=== PATIENT | male | born 1985 | race Caucasian/White ===

== ENCOUNTER 2024-06-15 07:30 | Outpatient (AMB) | payer OTHER, SELFPAY ==
--- NOTE | 2024-06-15 07:36 | A.OFFPC_ITS ---
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: No Accompanied by: Self / Same As Patient Allergies No Known Allergies Allergy (Verified 06/15/24 07:46) Medication List - Last Reconciled 06/15/24 by Sara Briggs MD methadone 70 mg PO DAILY Tobacco use date assessed: 06/15/24 Dental Screening Dental Screen Date: 06/15/24 Did you have a dental visit in the last 12 months?: No Did you have a dental problem in the last 6 months where you did not have access to dental care?: No Was dental information given to patient?: Patient has dentist HPI HPI Comments History of Present Illness Details This is a 38-year-old male comes [facility] care. 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 Has a right leg open wound for about 2 years after being bit by a pitbull dog while walking his dog. Has been going to [facility] wound clinic once a week. Needs a skin graft and plastic surgery referral to [facility]. The wound currently has yellowish secretions. It is about 5 x 3 in. He is a smoker and is going to start nicotine gum to quit. Has quitting date already. [facility] Surgical History No pertinent past surgical history Family History Father Mental health disorder Mother No problems noted. Maternal Grandfather Stroke Social History Housing: House Alcohol intake: never Patient Tobacco Use Status: Current everyday Tobacco user Tobacco use type: Cigarette Cigarettes Per Day: 10 e-Cigarette/Vaping Use: Never Used Second Hand Smoke Exposure: No service: No Current occupational status: unemployed Cognitive needs: No Hearing needs: No Vision needs: No Questionnaire PHQ-9 Over the last 2 weeks, how often have you been bothered by any of the following problems? 1. Little interest or pleasure in doing things: not at all 2. Feeling down, depressed, or hopeless: not at all 3. Trouble falling or staying asleep, or sleeping too much: not at all 4. Feeling tired or having little energy: not at all 5. Poor appetite or overeating: not at all 6. Feeling bad about yourself - or that you are a failure or have let yourself or your family down: not at all 7. Trouble concentrating on things, such as reading the newspaper or watching television: not at all 8. Moving or speaking so slowly that other people could have noticed. Or the opposite - being so fidgety or restless that you have been moving around a lot more than usual: not at all 9. Thoughts that you would be better off or of hurting yourself in some way: not at all Total score: 0 Depression Screening Interpretation: Negative Depression Screening Done: Yes 48821 - PHQ-9 Billing: Yes Source: Developed by Drs. Aryan Guallpa, Teresa Charles, Antwan Baird and colleagues, with an educational raghu from [employer]. Thrive Questionnaire Date Thrive assessed: 06/12/24 I am a: Patient What is your living situation today?: I have a steady place to live Within the past 12 months, did the food you bought not last and you didn't have the money to get more?: Never true Within the past 12 months, did you worry whether your food would run out before you got money to buy more?: Never true Do you have trouble paying for medicines?: No Do you have trouble getting transportation to medical appointments?: No Do you have trouble paying your heating and electricity bill?: No Do you have trouble taking care of your child, family member or friend?: No Do you have trouble with day-to-day activities such as bathing, preparing meals, shopping, managing finances, etc.?: No Are you currently unemployed and looking for a job?: Yes Are you interested in more education?: No Please select the resources that you would like help with: None Currently or been in a relationship where the following occur: No concerns reported THRIVE Score: 0 AUDIT C Alcohol Use Questionnaire (AUDIT-C) 1. How often do you have a drink containing alcohol?: Never Total Score: 0 Score Reviewed/Action Taken: No DALLIN-7 AMB Questionnaire DALLIN-7 Date DALLIN - 7 assessed: 06/15/24 Feeling nervous, anxious, or on edge: 0 = Not at all Not being able to stop or control worryin = Not at all Worrying too much about different things: 0 = Not at all Trouble relaxin = Not at all Being so restless that it is hard to sit still: 0 = Not at all Becoming easily annoyed or irritable: 0 = Not at all Feeling afraid as if something awful might happen: 0 = Not at all Total DALLIN-7 score (0-4 normal; 5-9 mild; 10-14 moderate; 15-21 severe): 0 Source: Developed by Drs. Aryan Guallpa, Teresa Charles, Antwan Baird and colleagues, with an educational raghu from [employer]. DALLIN-7 Assessment Billing DALLIN-7 Assessment Tool: DALLIN-7 Assessment 00755 Review of Systems Const All systems reviewed & are unremarkable except as noted in HPI and below Card Denies chest pain at rest, Denies chest pain with activity, Denies edema, Denies irregular heart rhythm, Denies claudication, Denies dyspnea, Denies dyspnea on exertion, Denies orthopnea, Denies paroxysmal nocturnal dyspnea and Denies slow heart rate Resp Denies cough, Denies dyspnea and Denies dyspnea on exertion GI Denies abdominal pain, Denies change in bowel habits, Denies excessive flatus, Denies nausea and Denies vomiting Denies urinary hesitancy, Denies urinary incontinence and Denies urinary urgency Musc Denies abnormal gait, Denies atrophy, Denies deformity and Denies limited range of motion Skin/Breast Denies bleeding lesions, Denies changing lesions, Denies rash and Reports wounds Neuro Denies abnormal gait, Denies behavioral changes and Denies lack of coordination Psych Denies behavioral changes Physical exam (Primary Care) BMI result Body Mass Index 30.1 Tobacco/Smoking Status: Tobacco use Status Patient Tobacco Use Status Current everyday Tobacco 06/15/24 07:43 Tobacco use type Cigarette 06/15/24 07:43 e-Cigarette/Vaping Use Never Used 06/15/24 07:43 Are you ready to quit: Yes Tobacco cessation counseling provided: Yes Items discussed: Nicotine replacement and QuitWorks Relapse Prevention: discussed the importance of a supportive environment, discussed extending NRT, discussed negative mood or depression after quitting, weight gain after smoking is common and discussed dietary, exercise and/or lifestyle changes Number of minutes spent counselin CPT code: 68830 - 4-10 Minutes Depression Screening Interpretation: Negative Thrive Assessment: Date of Thrive Assessment Date Thrive assessed 06/12/24 06/12/24 07:48 Currently or been in a relationship where the following occur: No concerns reported Resp Effort & Inspection: normal respiratory effort Auscultation: clear to auscultation bilaterally Cardio Jugular venous distension: no JVD Rate: regular rate Rhythm: regular rhythm Heart sounds: S1 normal heart sound present and S2 normal heart sound present Extrem General: Yes full ROM Right lower extremity: lower leg Details: penetrating wound (open 5 x 3 in) Assessment and Plan Assessment & Plan (1) Open wound of right lower leg: Code(s): S81.801A - Unspecified open wound, right lower leg, initial encounter Qualifiers: Encounter type: initial encounter Qualified Code(s): S81.801A - Unspecified open wound, right lower leg, initial encounter Plan: Referred to [facility] for skin graft. Orders: Referrals Plastic Surgery Referral S81.801A - Unspecified open wound, right lower leg, initial encounter Coding Level of Care Code New Pt Level 3 (48553) Complex EM visit Add On G2211 Diagnoses Open wound of right lower leg, initial encounter S81.801A Encounter type: initial encounter Additional Codes DALLIN-7 Assessment Billing - DALLIN-7 Assessment Tool: DALLIN-7 Assessment 65019 ([id number]) Vital Signs *Quality* - CPT code: 55382 - 4-10 Minutes ([id number]) Time Spent (min) 21
[2024-06-15 07:37] VITALS: BP 112/80; BMI 30.1
== END 2024-06-15 08:00 | disposition home or self-care (01) ==
PROVIDERS: PCP Internal Medicine; Visit Provider Internal Medicine
DX: S81.801A Unspecified open wound, right lower leg, initial encounter (principal); F17.210 Nicotine dependence, cigarettes, uncomplicated
CPT/HCPCS: 99203; 99406; G2211

== ENCOUNTER 2025-01-04 13:42 | Outpatient (AMB) | payer OTHER, SELFPAY ==
--- NOTE | 2025-01-04 13:50 | MHC.PC.OV ---
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 by: Self / Same As Patient Allergies No Known Allergies Allergy (Verified 01/04/25 14:00) Medication List - Last Reconciled 01/04/25 by Sara Briggs MD ibuprofen mg PO methadone 70 mg PO DAILY Tobacco use date assessed: 01/04/25 Dental Screening Dental Screen Date: 01/04/25 Did you have a dental visit in the last 12 months?: No Did you have a dental problem in the last 6 months where you did not have access to dental care?: No Was dental information given to patient?: Yes HPI HPI Comments History of Present Illness Details The patient is a 39-year-old male presenting with the need for a physical examination. He recently underwent a skin graft two weeks prior and continues to be monitored for healing progress at a wound clinic and by a plastic surgeon. Following the recommendation from healthcare professionals, he ceased smoking before the surgery. The patient has a history of IV heroin use but reports maintaining abstinence for the past four years. Medically, he has no allergies indicated and manages discomfort with ibuprofen as needed while on chronic methadone at a dosage of 70 mg. There is a family history of bipolar disorder in the patient's father, though it is reportedly stable. The patient confirms no issues of anxiety or depression. No surgical history was noted aside from the recent grafting procedure. His habits include non-consumption of alcohol. The patient's mother is reported to be in good health without any known conditions. His past health maintenance includes up-to-date vaccinations, inclusive of receiving a tetanus shot within the last ten years. - Tetanus vaccine administered within the last 10 years - Blood work ordered including cholesterol, sugar, kidney, and liver function tests requiring 8-hour fasting - Abstinence from smoking for several months following surgical recommendation [facility] Surgical History (Updated 01/04/25 @ 14:07 by Sara Briggs MD) H/O skin graft Family History Father Mental health disorder Mother No problems noted. Maternal Grandfather Stroke Social History (Updated 01/04/25 @ 14:07 by Sara Brigsg MD) Housing: House Alcohol intake: never Patient Tobacco Use Status: Former Tobacco user Tobacco use type: Cigarette Cigarettes Per Day: 10 e-Cigarette/Vaping Use: Never Used Second Hand Smoke Exposure: No service: No Current occupational status: unemployed Cognitive needs: No Hearing needs: No Vision needs: No Questionnaire PHQ-9 Over the last 2 weeks, how often have you been bothered by any of the following problems? 1. Little interest or pleasure in doing things: not at all 2. Feeling down, depressed, or hopeless: not at all 3. Trouble falling or staying asleep, or sleeping too much: not at all 4. Feeling tired or having little energy: not at all 5. Poor appetite or overeating: not at all 6. Feeling bad about yourself - or that you are a failure or have let yourself or your family down: not at all 7. Trouble concentrating on things, such as reading the newspaper or watching television: not at all 8. Moving or speaking so slowly that other people could have noticed. Or the opposite - being so fidgety or restless that you have been moving around a lot more than usual: not at all 9. Thoughts that you would be better off or of hurting yourself in some way: not at all Total score: 0 Depression Screening Interpretation: Negative Depression Screening Done: Yes 01328 - PHQ-9 Billing: Yes Source: Developed by Drs. Aryan Guallpa, Teresa Charles, Antwan Baird and colleagues, with an educational raghu from [employer]. Thrive Questionnaire Date Thrive assessed: 01/04/25 I am a: Patient What is your living situation today?: I have a steady place to live Within the past 12 months, did the food you bought not last and you didn't have the money to get more?: Never true Within the past 12 months, did you worry whether your food would run out before you got money to buy more?: Never true Do you have trouble paying for medicines?: No Do you have trouble getting transportation to medical appointments?: No Do you have trouble paying your heating and electricity bill?: No Do you have trouble taking care of your child, family member or friend?: No Do you have trouble with day-to-day activities such as bathing, preparing meals, shopping, managing finances, etc.?: No Are you currently unemployed and looking for a job?: No Are you interested in more education?: No Please select the resources that you would like help with: None Currently or been in a relationship where the following occur: No concerns reported THRIVE Score: 0 AUDIT C Alcohol Use Questionnaire (AUDIT-C) 1. How often do you have a drink containing alcohol?: Never Total Score: 0 Score Reviewed/Action Taken: No DALLIN-7 AMB Questionnaire DALLIN-7 Date DALLIN - 7 assessed: 01/04/25 Feeling nervous, anxious, or on edge: 0 = Not at all Not being able to stop or control worryin = Not at all Worrying too much about different things: 0 = Not at all Trouble relaxin = Not at all Being so restless that it is hard to sit still: 0 = Not at all Becoming easily annoyed or irritable: 0 = Not at all Feeling afraid as if something awful might happen: 0 = Not at all Total DALLIN-7 score (0-4 normal; 5-9 mild; 10-14 moderate; 15-21 severe): 0 Source: Developed by Drs. Aryan Guallpa, Teresa Charles, Antwan Baird and colleagues, with an educational raghu from [employer]. DALLIN-7 Assessment Billing DALLIN-7 Assessment Tool: DALLIN-7 Assessment 37274 Review of Systems Const All systems reviewed & are unremarkable except as noted in HPI and below Card Denies chest pain at rest, Denies chest pain with activity, Denies edema, Denies irregular heart rhythm, Denies claudication, Denies dyspnea, Denies dyspnea on exertion, Denies orthopnea, Denies paroxysmal nocturnal dyspnea and Denies slow heart rate Resp Denies cough, Denies dyspnea and Denies dyspnea on exertion GI Denies abdominal pain, Denies change in bowel habits, Denies excessive flatus, Denies nausea and Denies vomiting Physical exam (Primary Care) Vital Signs: Last Vital Signs BP 110/72 01/04/25 13:52 BMI result Body Mass Index 31.0 BMI Assessment/Plan discussion: High BMI High, discussed plan: lifestyle, weight reduction, dietary and physical activity Tobacco/Smoking Status: Tobacco use Status Tobacco use date assessed 01/04/25 01/04/25 13:58 Patient Tobacco Use Status Former Tobacco user 01/04/25 14:07 Tobacco use type Cigarette 01/04/25 14:07 e-Cigarette/Vaping Use Never Used 01/04/25 14:07 PHQ-9: PHQ-9 Score PHQ-9: Total score 0 01/04/25 14:05 Depression Screening Interpretation: Negative Thrive Assessment: Date of Thrive Assessment Date Thrive assessed 01/04/25 01/04/25 13:58 Currently or been in a relationship where the following occur: No concerns reported HENMT Head: Yes normal to inspection, Yes normocephalic and Yes atraumatic Ears: external ears normal Eyes General: appearance normal, both eyes and all related structures Eyelids: Yes eyelids normal Conjunctivae: conjunctivae normal Neck Neck: Yes normal visual inspection and Yes supple Resp Effort & Inspection: normal respiratory effort Auscultation: clear to auscultation bilaterally Cardio Jugular venous distension: no JVD Rate: regular rate Rhythm: regular rhythm Heart sounds: S1 normal heart sound present and S2 normal heart sound present GI Inspection: Yes normal to inspection Palpation (GI): Soft to palpation and nontender Auscultation: normal bowel sounds Skin Other: right leg ulcer Neuro General: no focal motor deficits Extrem General: Yes full ROM Psych Appearance: grossly normal Coding Level of Care Code Est Pt Prev Care 40-64y(36957) Diagnoses Physical exam Z00.00 Additional Codes DALLIN-7 Assessment Billing - DALLIN-7 Assessment Tool: DALLIN-7 Assessment 90200 ([id number]) PHQ-9 - 80140 - PHQ-9 Billing: Yes ([id number]) Time Spent (min) 30 Assessment & Plan Assessment & Plan (1) Physical exam: Code(s): Z00.00 - Encounter for general adult medical examination without abnormal findings Category: Medical Plan I will ensure that the patient's skin graft continues to heal appropriately with ongoing follow-up at both the wound clinic and with the plastic surgeon. Given the patient's report of swelling and tightness, I anticipate these issues will improve with time as the graft site becomes more flexible. If necessary, future referrals to physical therapy may be considered to support improved mobility. The patient agrees to continue current use of Murine eardrops. To assess his general health, I have ordered a series of blood tests that require fasting; the results will be evaluated to determine if any additional interventions are required. The patient is to maintain his abstinence from both smoking and heroin use, which positively contributes to his overall health status. There were no immediate concerns requiring urgent action, and I anticipate seeing the patient for a follow-up visit to address his skin and any potential additional health matters as necessary. Patient was informed and verbally consented to the use of an ambient scribe for clinic note documentation during this visit. During the visit, the potential need for physical therapy to manage swelling and movement restrictions associated with the recent skin graft was discussed. I reiterated the importance of maintaining abstinence from tobacco use following the surgical recommendation. The patient expressed understanding and willingness to comply. We also reviewed his father's history of bipolar disorder, noting the stability of the condition. Future health maintenance includes blood labs assessing cholesterol, sugar levels, and liver and kidney tests, which I will review once results are available. The patient was advised on the appropriate use of eardrops, with a reminder to avoid pushing wax further into the ear. Follow-up on wound care remains in place, and I confirmed the availability of additional consultations as needed. Orders: Orders Lipid Panel Today Z00.00 - Encounter for general adult medical examination without abnormal findings Comprehensive [place]. Panel Fast Today Z00.00 - Encounter for general adult medical examination without abnormal findings Patient Instructions: - Continue abstinence from tobacco and intravenous drug use - Attend scheduled follow-ups at the wound clinic and with the plastic surgeon - Use Murine eardrops for ear care as directed - Complete fasting blood work for cholesterol, sugar, kidney, and liver evaluations - Report any changes or concerns in the graft site to healthcare providers promptly
[2025-01-04 13:52] VITALS: BP 110/72; BMI 31.0
--- OUTSIDE RECORDS SUMMARY | 2025-01-04 15:27 | XMS_ITS | Clinical Summary ---
Author Organization [facility] Address [address] [place] [address] Care Team Providers Care Chiropractic Teacher Name Role Phone Pcp, No Primary Care Provider Unavailabl e Allergies No known active allergies Medications Medication Sig Dispensed Refills Start Date End Date Status amoxicillin-clavulan ate (AUGMENTIN) 875-125 MG per tablet Take 1 tablet by mouth 2 (two) times a day. Take as directed or until you run out 20 tablet 10/10/2019 Active Social History Tobacco Use Types Packs/Day Years Used Date Smoking Tobacco: Never Assessed Sex and Gender Information Value Date Recorded Sex Assigned at Not on file Gender Identity Not on file Sexual Orientation Not on file Last Filed Vital Signs Vital Sign Reading Time Taken Comments Blood Pressure 128/72 10/10/2019 1:39 PM EST Pulse 89 10/10/2019 1:39 PM EST Temperature - - Respiratory Rate 18 10/10/2019 1:39 PM EST Oxygen Saturation 100% 10/10/2019 1:39 PM EST Inhaled Oxygen Concentration - - Weight 79.4 kg (175 lb) 10/10/2019 1:39 PM EST Height 188 cm (6' 2 ) 10/10/2019 1:39 PM EST Body Mass Index 22.47 10/10/2019 1:39 PM EST Plan of Treatment Health Maintenance Due Date Last Done Comments Hepatitis C Virus Screening 1984 HIV Screening 1997 DTaP/Tdap/Td Vaccines (1 - Tdap) 2003 Hepatitis B Vaccines (1 of 3 - 19+ 3-dose series) 2003 Influenza Vaccine 05/07/2024 COVID-19 Vaccine (2023-2 5 season) 2024 HPV Vaccines Aged Out No longer eligi ble based on patient's age to complete this topic Pneumococcal Vaccine: Pediat jihan (0-5 Years) and At-Risk Patients (6 to 49 Years) Aged Out No longer eligible b ased on patient's age to complete this topic Care Teams Chiropractic Teacher Relationship Specialty Start Date End Date Pcp, No PCP - General General Medicine 10/10/19
== END 2025-01-04 14:18 | disposition home or self-care (01) ==
LOC: HO.HMCH 13:43
PROVIDERS: PCP Internal Medicine; Visit Provider Internal Medicine
DX: Z00.00 Encounter for general adult medical examination without abnormal findings (principal)

== ENCOUNTER → 2025-01-04 13:42 | Outpatient (BNVA) | payer OTHER, SELFPAY | PROVIDERS: PCP Internal Medicine; Visit Provider Internal Medicine | DX: Z00.00 Encounter for general adult medical examination without abnormal findings (principal) | CPT/HCPCS: 96127; 99396 ==

== ENCOUNTER 2025-01-20 10:54 | Outpatient (REF) | payer OTHER, SELFPAY ==
[2025-01-20 12:36] LABS: Alanine Aminotransferase 362 U/L (0-40); Albumin Level 4.3 g/dL (3.5-5.0); Alkaline Phosphatase 80 U/L (39-117); Anion Gap 12 (12-20); Aspartate Amino Transferase 152 U/L (5-37); Bilirubin Total 0.6 mg/dL (0.0-1.0); Blood Urea Nitrogen 13 mg/dL (9-16); Calcium 9.6 mg/dL (8.4-10.2); Carbon Dioxide 27 mmol/L (22-29); Chloride 105 mmol/L (96-108); Cholesterol 192 mg/dL (<200); Estimated Glomerular Filt Rate > 60; Glucose Fasting 105 mg/dL (60-99); HDL Cholesterol 46 mg/dL (>40); LDL Cholesterol Calculated 134 mg/dL (<100); Potassium 4.4 mmol/L (3.3-5.1); Sodium 140 mmol/L (135-145); Total Protein 7.6 g/dL (6.5-8.0); Triglycerides 64 mg/dL (<150)
--- OUTSIDE RECORDS SUMMARY | 2025-01-20 13:03 | XMS_ITS | Clinical Summary ---
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 Take as directed or until you run out 20 tablet 10/10/2019 Active Social History Tobacco Use Types Packs/Day Years Used Date Smoking Tobacco: Never Assessed Sex and Gender Information Value Date Recorded Sex Assigned at Not on file Legal Sex Male 1:24 PM EST Gender Identity Not on file Sexual Orientation [...] series) 2003 Influenza Vaccine 05/07/2024 COVID-19 Vaccine ( - 2023-2 5 season) 2024 HPV Vaccines Aged Out No longer eligi ble based on patient's age to complete this topic Pneumococcal Vaccine: Pediat jihan (0-5 Years) and At-Risk Patients (6 to 49 Years) Aged Out No longer eligible b ased on patient's age to complete this topic Insurance [facility] [employer] [facility] [address] [place] [address] Care Teams Broadcast Operations Engineer Relationship Specialty Start Date End Date Pcp, No PCP - General General Medicine 10/10/19
== END 2025-01-20 10:55 | disposition home or self-care (01) ==
LOC: HO.LAB 10:54
PROVIDERS: PCP Internal Medicine; Visit Provider Internal Medicine
DX: Z00.00 Encounter for general adult medical examination without abnormal findings (principal)
CPT/HCPCS: 36415; 80053; 80061